=== PATIENT | male | born 1980 | race Caucasian/White ===

== ENCOUNTER 2021-10-08 10:20 | Outpatient (CLI) | payer BC, SELFPAY ==
[2021-10-08 18:25] LABS: Hematocrit 51.3 % (42.0-52.0); Mean Corpuscular HGB Conc 33.1 g/dl (32-36); Mean Corpuscular Hemoglobin 28.8 pg (26-34); Mean Corpuscular Volume 86.9 fl (80-100); Mean Platelet Volume 11.2 fl (7.4-10.4); Platelet Count Result 215 k/mm3 (150-375); Red Cell Distribution Width 14.3 % (11.5-14.5); White Blood Count 7.8 K/mm3 (4.5-10.0)
[2021-10-08 18:35] LABS: Alanine Aminotransferase 30 U/L (6-50); Albumin Level 4.6 g/dL (3.5-5.1); Alkaline Phosphatase 59 U/L (38-126); Anion Gap 7 mmol/L (8-16); Aspartate Amino Transferase 23 U/L (17-59); Bilirubin,Total 0.5 mg/dL (0.2-1.3); Blood Urea Nitrogen 11 mg/dL (9-20); Calcium 9.5 mg/dL (8.4-10.2); Carbon Dioxide 27 mmol/L (22-30); Chloride 102 mmol/L (98-107); Cholesterol 193 mg/dL (0-200); Estimated Glomerular Filt Rate > 60; Glucose 104 mg/dL (65-110); HDL Direct 38 mg/dL; Potassium 4.8 mmol/L (3.4-5.0); Sodium 136 mmol/L (137-145); Triglycerides 220 mg/dL (<150)
[2021-10-08 18:45] LABS: LDL Cholesterol Direct 113 mg/dL
[2021-10-08 18:48] LABS: Vitamin D 25 Hydroxy 60.7 ng/mL
== END 2021-10-08 10:21 | disposition home or self-care (01) ==
PROVIDERS: PCP Family Medicine; Visit Provider Family Medicine
DX: Z00.00 Encounter for general adult medical examination without abnormal findings (principal); E55.9 Vitamin D deficiency, unspecified; R45.4 Irritability and anger; R03.0 Elevated blood-pressure reading, without diagnosis of hypertension; F41.9 Anxiety disorder, unspecified; F32.A Depression, unspecified
CPT/HCPCS: 36415; 80053; 80061; 82306; 84443; 85027

== ENCOUNTER 2022-01-25 07:42 | Outpatient (CLI) | payer BC, SELFPAY ==
[2022-01-30 20:41] LABS: PSA, Free 0.15 ng/mL; PSA, Total 0.4 ng/mL (<=4.0)
[2022-02-01 16:36] LABS: Testosterone Total 572 ng/dL (250-1100)
== END 2022-01-25 07:43 | disposition home or self-care (01) ==
LOC: ANHBWCLAB 07:44
PROVIDERS: PCP Family Medicine; Visit Provider Family Medicine
DX: Z12.5 Encounter for screening for malignant neoplasm of prostate (principal); R79.89 Other specified abnormal findings of blood chemistry
CPT/HCPCS: 36415; 84153; 84154; 84402; 84403

== ENCOUNTER 2023-01-23 07:05 | Outpatient (CLI) | payer BC, SELFPAY ==
--- NOTE | 2023-01-23 | ECG_ITS ---
Measurements Intervals [place] Rate: 77 P: 48 NC: 161 QRS: -22 QRSD: 109 T: 29 QT: 376 QTc: 426 Interpretive Statements SINUS RHYTHM BORDERLINE LEFT AXIS DEVIATION [QRS AXIS < -20] NO PREVIOUS ECG AVAILABLE FOR COMPARISON Electronically Signed On 01-23-2023 12:45:20 CDT by Roma Mello M.D.
--- NOTE | ~2023-01-23 | XR_ITS ---
XR chest 2V DATE: 01/23/2023 08:07 INDICATION: Preoperative evaluation TECHNIQUE: 2 views COMPARISON: 05/20/2018 2 view chest FINDINGS: Normal heart size. No hilar or mediastinal enlargement. No pulmonary infiltrate or consolid ation, pleural effusion or pulmonary vascular congestion or pneumothorax is detected. IMPRESSION: No active cardiopulmonary disease Reviewed, dictated and finalized at location L.
[2023-01-23 07:36] LABS: Appearance Urine Clear (Clear); Bilirubin Urine Negative (Negative); Blood Urine Negative (Negative); Color Urine Yellow (Yellow); Glucose Urine UA Negative (Negative); Ketones Urine Negative (Negative); Leukocyte Esterase Ur Negative LEU/UL (Negative); Nitrate Urine Negative (Negative); Protein Urine Negative (Negative); Specific Grav Ur 1.015 (1.001-1.035); Urobilinogen Urine 0.2 mg/dL (<2.0); pH Urine 6.5 (5.0-9.0)
[2023-01-23 07:37] LABS: Add Urine Microscopic? NO; Basophils Absolute Auto 0.1 K/mm3 (0.0-0.1); Basophils Percent Auto 0.9 % (0.2-1.2); Eosinophils Absolute Auto 0.3 K/mm3 (0-0.3); Eosinophils Percent Auto 4.1 % (0-4.4); Hematocrit 49.1 % (42.0-52.0); Hemoglobin 16.2 g/dL (14.0-18.0); Immature Granulocyte Absolute 0.04 K/mm3 (0.00-0.031); Immature Granulocyte Percent A 0.6 % (0-0.5); Lymphocytes Percent Auto 28.6 % (18.3-44.2); Mean Corpuscular Hemoglobin 29.2 pg (26-34); Mean Corpuscular Volume 88.5 fl (80-100); Mean Platelet Volume 10.6 fl (7.4-10.4); Monocytes Absolute Auto 0.6 K/mm3 (0.1-0.6); Monocytes Percent Auto 8.4 % (2.6-8.5); Neutrophils Percent Auto 57.4 % (45.5-73.1); Platelet Count Result 191 k/mm3 (150-375); Red Blood Count 5.55 M/mm3 (4.6-6.20); Red Cell Distribution Width 14.3 % (11.5-14.5)
[2023-01-23 07:59] LABS: Alanine Aminotransferase 31 U/L (6-50); Albumin Level 4.3 g/dL (3.5-5.1); Alkaline Phosphatase 56 U/L (38-126); Anion Gap 8 mmol/L (8-16); Aspartate Amino Transferase 28 U/L (17-59); Bilirubin,Total 0.5 mg/dL (0.2-1.3); Blood Urea Nitrogen 10 mg/dL (9-20); Calcium 8.7 mg/dL (8.4-10.2); Carbon Dioxide 25 mmol/L (22-30); Chloride 105 mmol/L (98-107); Estimated Glomerular Filt Rate > 60; Glucose 117 mg/dL (65-110); Potassium 3.9 mmol/L (3.4-5.0); Sodium 138 mmol/L (137-145)
[2023-01-23 08:21] LABS: Erythrocyte Sedimentation Rate 1 mm/hr (0-20)
[2023-01-23 08:24] LABS: INR 0.9; Partial Thromboplastin Time 27.1 SECONDS (22.3-36.8)
[2023-01-23 08:34] LABS: HIV 1/2 Ab P24 Ag Result Negative (Negative)
[2023-01-23 09:28] LABS: Vitamin D 25 Hydroxy 44.8 ng/mL
[2023-01-23 09:37] LABS: Hepatitis B Surface Antigen Negative (Negative)
[2023-01-23 09:43] LABS: HAV RESULT Negative (Negative); Hepatitis B Core IgM Result Negative (Negative)
[2023-01-23 09:55] LABS: Hepatitis C Virus Antibody Negative (Negative)
== END 2023-01-23 07:06 | disposition home or self-care (01) ==
PROVIDERS: PCP Family Medicine
DX: Z01.818 Encounter for other preprocedural examination (principal)
CPT/HCPCS: 36415; 71046; 80053; 80074; 81003; 82306; 85025; 85610; 85652; 85730; 86703; 93005; G0432

== ENCOUNTER 2023-03-27 07:10 | Outpatient (CLI) | payer BC, SELFPAY ==
[2023-03-27 20:58] LABS: Potassium 3.8 mmol/L (3.4-5.0)
[2023-03-27 21:03] LABS: Anion Gap 8 mmol/L (8-16); Blood Urea Nitrogen 13 mg/dL (9-20); Calcium 9.2 mg/dL (8.4-10.2); Carbon Dioxide 27 mmol/L (22-30); Chloride 103 mmol/L (98-107); Estimated Glomerular Filt Rate > 60; Glucose 110 mg/dL (65-110); Sodium 138 mmol/L (137-145)
[2023-03-27 21:38] LABS: Hemoglobin A1C 5.9 % (<5.7)
== END 2023-03-27 07:11 | disposition home or self-care (01) ==
LOC: ANHBWCLAB 07:11
PROVIDERS: PCP Nurse Practitioner Adult Health; Visit Provider Nurse Practitioner Adult Health
DX: R73.9 Hyperglycemia, unspecified (principal)
CPT/HCPCS: 36415; 80048; 83036

== ENCOUNTER 2023-05-29 07:06 | Outpatient (CLI) | payer SELFPAY ==
--- NOTE | 2023-05-29 | ECG_ITS ---
Measurements Intervals [place] Rate: 82 P: 55 UT: 158 QRS: -26 QRSD: 112 T: 39 QT: 376 QTc: 440 Interpretive Statements SINUS RHYTHM BORDERLINE LEFT AXIS DEVIATION [QRS AXIS < -20] COMPARED TO ECG 01/23/2023 07:53:45 NO SIGNIFICANT CHANGES Electronically Signed On 05-29-2023 11:26:31 SPEECH AND HEARING DIRECTOR by Roma Mello M.D.
[2023-05-29 07:31] LABS: Hematocrit 50.3 % (42.0-52.0); Hemoglobin 16.2 g/dL (14.0-18.0); Mean Corpuscular HGB Conc 32.2 g/dl (32-36); Mean Corpuscular Hemoglobin 28.6 pg (26-34); Mean Corpuscular Volume 88.9 fl (80-100); Mean Platelet Volume 10.6 fl (7.4-10.4); Platelet Count Result 200 k/mm3 (150-375); Red Blood Count 5.66 M/mm3 (4.6-6.20); Red Cell Distribution Width 15.2 % (11.5-14.5); White Blood Count 5.9 K/mm3 (4.5-10.0)
[2023-05-29 07:43] LABS: Alanine Aminotransferase 45 U/L (6-50); Albumin Level 4.7 g/dL (3.5-5.1); Alkaline Phosphatase 59 U/L (38-126); Anion Gap 5 mmol/L (8-16); Aspartate Amino Transferase 35 U/L (17-59); Bilirubin,Total 0.9 mg/dL (0.2-1.3); Blood Urea Nitrogen 12 mg/dL (9-20); Calcium 9.4 mg/dL (8.4-10.2); Carbon Dioxide 29 mmol/L (22-30); Chloride 105 mmol/L (98-107); Estimated Glomerular Filt Rate > 60; Glucose 107 mg/dL (65-110); Potassium 4.2 mmol/L (3.4-5.0); Sodium 139 mmol/L (137-145)
== END 2023-05-29 07:07 | disposition home or self-care (01) ==
LOC: ANHLAB 07:08
PROVIDERS: PCP Nurse Practitioner Adult Health; Visit Provider Orthopaedic Surgery
DX: Z01.818 Encounter for other preprocedural examination (principal); S43.432A Superior glenoid labrum lesion of left shoulder, initial encounter; R93.1 Abnormal findings on diagnostic imaging of heart and coronary circulation; X58.XXXA Exposure to other specified factors, initial encounter
CPT/HCPCS: 36415; 80053; 85027; 93005

== ENCOUNTER 2024-12-03 06:44 | Day surgery (SDC) | payer BC, SELFPAY ==
[2024-11-18 12:04] VITALS: BMI 45.8
--- OUTSIDE RECORDS SUMMARY | 2024-12-03 06:48 | XMS_ITS | Continuity of Care Document ---
Author Organization [facility] Address [address] [place] [address] [address] [place] [address] Phone Care Team Providers Care Teaching Artist Name Role Phone Carmel Galvan PT Unavailable Unavailable Procedures Procedure Date FCE Each 15min Therapeutic Activities Neuromuscular Re-Ed Therapeutic Exercise BILINGUAL RECEPTIONIST Acute Therapeutic Activities Neuromuscular Re-Ed Therapeutic Exercise Therapeutic Activities Neuromuscular Re-Ed Therapeutic Exercise Therapeutic Activities Neuromuscular Re-Ed Therapeutic Exercise Therapeutic Activities Neuromuscular Re-Ed Therapeutic Exercise Therapeutic Activities Neuromuscular Re-Ed Therapeutic Exercise Therapeutic Activities Neuromuscular Re-Ed Therapeutic Exercise Therapeutic Activities Neuromuscular Re-Ed Therapeutic Exercise Therapeutic Activities Neuromuscular Re-Ed Therapeutic Exercise Therapeutic Activities Neuromuscular Re-Ed Therapeutic Exercise Therapeutic Activities Neuromuscular Re-Ed Therapeutic Exercise PT Evaluation Moderate Complexity Therapeutic Activities Therapeutic Exercise Work Conditioning Initial 2 hrs 024 Work Conditioning add 1 hr Work Conditioning Initial 2 hrs 024 Work Conditioning add 1 hr Work Conditioning Initial 2 hrs 024 Work Conditioning add 1 hr Work Conditioning Initial 2 hrs 024 Work Conditioning add 1 hr BILINGUAL RECEPTIONIST Acute Work Conditioning Initial 2 hrs 024 Work Conditioning add 1 hr Work Conditioning Initial 2 hrs 024 Work Conditioning add 1 hr Work Conditioning Initial 2 hrs 024 Work Conditioning add 1 hr Work Conditioning Initial 2 hrs 024 Work Conditioning add 1 hr Work Conditioning Initial 2 hrs 024 Work Conditioning add 1 hr Work Conditioning Initial 2 hrs 024 Work Conditioning add 1 hr Work Cond Initial Report Work Conditioning Initial 2 hrs 024 Work Conditioning add 1 hr Progress Note Therapeutic Activities Neuromuscular Re-Ed Therapeutic Exercise Manual Therapy Therapeutic Activities Neuromuscular Re-Ed Therapeutic Exercise Manual Therapy Therapeutic Activities Neuromuscular Re-Ed Manual Therapy Therapeutic Activities Neuromuscular Re-Ed Therapeutic Exercise Therapeutic Activities Neuromuscular Re-Ed Therapeutic Exercise Therapeutic Activities Neuromuscular Re-Ed Therapeutic Exercise Therapeutic Activities Neuromuscular Re-Ed Therapeutic Exercise Manual Therapy Therapeutic Activities Neuromuscular Re-Ed Therapeutic Exercise Therapeutic Activities Neuromuscular Re-Ed Therapeutic Exercise Manual Therapy Therapeutic Activities Neuromuscular Re-Ed Manual Therapy Therapeutic Exercise Therapeutic Activities Neuromuscular Re-Ed Manual Therapy Therapeutic Exercise Therapeutic Activities Neuromuscular Re-Ed Therapeutic Exercise Therapeutic Activities Neuromuscular Re-Ed Therapeutic Exercise Therapeutic Activities Neuromuscular Re-Ed Therapeutic Exercise PT Evaluation Moderate Complexity Therapeutic Activities Neuromuscular Re-Ed Therapeutic Exercise Advance Directives Directive Yes / No Effective Date File Name No Information Encounters Encounter Description Practice Location Reason(s) For Visit Diagnoses Date Provider Providers Copied on Encounter [facility], [id number], [place] tel:[phone] [facility] No Information 4 Cole Burt. . [facility] [place] [address], [id number], [place] tel:[phone] [place] No Information 4 Cherie Beaver. [address] [place], [address], [place]. tel:[phone] Referring Provider: Adarsh Clemons, [address], [place], [address]. tel:[phone] [facility], [place], [place], [id number], [place] tel:[phone] [facility] No Information 4 Duncan Davy. . Referring Provider: Nelson Orta, [address], [place], [address]. tel:[phone] [facility], [address], [place], [place], [id number], [place] tel:[phone] [place] No Information Apr-0 5- 4 Duncan Davy. . Referring Provider: Nelson Orta, [address], [place], [address]. tel:[phone] [facility], [address], [place], [place], [id number], [place] tel:[phone] [place] No Information Apr-0 3- 4 Duncan Davy. . Referring Provider: Nelson Orta, [address], [place], [address]. tel:[phone] [facility] [address], [place], [place], [id number], [place] tel:[phone] [place] No Information Apr-0 1- 4 Duncan Davy. . Referring Provider: Mustapha Renee [address], [place], [address]. tel:[phone] [facility], [address], [place], [place], [id number], [place] tel:[phone] [place] No Information Mar-2 4 Duncan Davy. . Referring Provider: Mustapha Renee [address], [place], [address]. tel:[phone] [facility], [place], [place], [id number], [place] tel:[phone] [place] No Information Mar-2 - 4 Duncna Davy. . Referring Provider: Mustapha Rene[address], [place], [address]. tel:[phone] [facility], [place], [place], [id number], [place] tel:[phone] [place] No Information Mar-2 5-202 4 Duncan Davy. . Referring Provider: Nelson Orta, [address], [place], [address]. tel:[phone] [facility] [address], [place], [id number], [place] tel:[phone] [place] No Information Mar-2 2-202 4 Duncan Davy. . Referring Provider: Nelson Orta, [address], [place], [address]. tel:[phone] [facility], [place], [place], [address], [place] tel:[phone] [place] No Information Mar-2 0-202 4 Duncan Davy. . Referring Provider: Mustapha Renee [address], [place], [address]. tel:[phone] [facility], [place], [id number], [place] tel:[phone] [place] No Information Mar-1 8-202 4 Duncan Davy. . Referring Provider: Mustapha Renee [address], [place], [address]. tel:[phone] [facility], [place], [place], [id number], [place] tel:[phone] [place] No Information Mar-1 5-202 4 Duncan Davy. . Referring Provider: Mustapha Renee [address], [place], [address]. tel:[phone] [facility], [place], [id number], [place] tel:[phone] [place] No Information Mar-1 4-202 4 Duncan Davy. . Referring Provider: Nelson You, [address] [place] [address] Rd [address], [place], [address]. tel:[phone] [facility], [address], [place], [place], [id number], [place] tel:[phone] [place] No Information 4 Duncan Davy. . Referring Provider: Adarsh Clemons, [address] [address] [address], [place], [address]. tel:[phone] [facility], [address], [place], [place], [id number], [place] tel:[phone] [place] No Information 4 Duncan Davy. . Referring Provider: Adarsh Clemons, [address] [address] [address], [place], [address]. tel:[phone] [facility], [address], [place], [place], [id number], [place] tel:[phone] [place] No Information 4 Duncan Davy. . Referring Provider: Adarsh Clemons, [address] [address] [address], [place], [address]. tel:[phone] [facility], [address], [place], [place], [id number], [place] tel:[phone] [place] No Information 4 Duncan Davy. . Referring Provider: Adarsh Clemons, [address] [address], [place], [address]. tel:[phone] [facility], [place], [place], [id number], [place] tel:[phone] [place] No Information 4 Duncan Davy. . Referring Provider: Adarsh Clemons, [address], [place], [address]. tel:[phone] [facility], [address], [place], [address], [place] tel:[phone] [place] No Information 0 4 Duncan Elizondoyn. . Referring Provider: Adarsh Clemons, [address], [place], [address]. tel:[phone] [facility], [address], [place], [id number], [place] tel:[phone] [place] No Information b0 4 Duncan Davy. . Referring Provider: Adarsh Clemons, [address], [place], [address]. tel:[phone] [facility], [address], [place], [id number], [place] tel:[phone] [place] No Information 0 4 Duncan Davy. . Referring Provider: Adarsh Clemons, [address], [place], [address]. tel:[phone] [facility], [place], [id number], [place] tel:[phone] [place] No Information 4 Duncan Elizondoyn. . Referring Provider: Adarsh Clemons, [address], [place], [address]. tel:[phone] [facility], [place], [place], [id number], [place] tel:[phone] [place] No Information 4 Duncan Elizondoyn. . Referring Provider: Adarsh Clemons, [address], [place], [address]. tel:[phone] [facility], [place], [place], [id number], [place] tel:[phone] [place] No Information 4 Cole Burt. . Referring Provider: Adarsh Clemons, [address], [place], [address]. tel:[phone] [facility], [address], [place], [id number], [place] tel:[phone] [place] No Information 4 Duncan Bhatti. . Referring Provider: Adarsh Clemons, [address], [place], [address]. tel:[phone] [facility], [address], [place], [place], [address], [place] tel:[phone] [place] No Information 4 Duncan Bhatti. . Referring Provider: Adarsh Clemons, [address], [place], [address]. tel:[phone] [facility], [address], [place], [address], [place] tel:[phone] [place] No Information 4 Lurtz Pam. . Referring Provider: Adarsh Clemons, [address], [place], [address]. tel:[phone] [facility], [address], [place], [id number], [place] tel:[phone] [place] No Information 4 Lurtz Pam. . Referring Provider: Adarsh Clemons, [address], [place], [address]. tel:[phone] [facility], [address], [place], [id number], [place] tel:[phone] [place] No Information 4 Lurtz Pam. . Referring Provider: Adarsh Clemons, [address], [place], [address]. tel:[phone] [facility], [address], [place], [place], [address], [place] tel:[phone] [place] No Information 8 4 Lurtz Pam. . Referring Provider: Adarsh Clemons, [address], [place], [address]. tel:[phone] [facility], [address], [place], [place], [id number], [place] tel:[phone] [place] No Information 5 4 Duncan Davy. . Referring Provider: Adarsh Clemons, [address] [place] [address], [place], [address]. tel:[phone] [facility], [address], [place], [id number], [place] tel:[phone] [place] No Information - 4 Lurtz Pam. . Referring Provider: Adarsh Clemons, [address], [place], [address]. tel:[phone] [facility], [address], [place], [id number], [place] tel:[phone] [place] No Information 2 4 Duncan Davy. . Referring Provider: Adarsh Clemons, [address], [place], [address]. tel:[phone] [facility], [place], [id number], [place] tel:[phone] [place] No Information 3 Duncan Davy. . Referring Provider: Adarsh Clemons, [address], [place], [address]. tel:[phone] [facility], [address], [place], [id number], [place] tel:[phone] [place] No Information 3 Lurtz Pam. . Referring Provider: Adarsh Clemons, [address], [place], [address]. tel:[phone], [id number], tel:[phone] [place] No Information Dec-2 6- 3 Duncan Davy. . Referring Provider: Adarsh Clemons, [address] [place] [address], [facility] [place], [address]. tel:[phone], [id number], [place] tel:[phone] [place] No Information Dec-2 2- 3 Duncan Davy. . Referring Provider: Adarsh Clemons, [address] [place] [address], [facility] [place], [address]. tel:[phone], [id number], tel:[phone] [place] No Information Dec-2 1- 3 Duncan Davy. . Referring Provider: Adarsh Clemons, [address] [place] [address], [facility] [place], [address]. tel:[phone], [id number], tel:[phone] [place] No Information Dec-2 0-202 3 Duncan Davy. . Referring Provider: Adarsh Clemons, [address] [place] [address], [facility], [address]. tel:[phone] Family History Family Member Type Diagnosis Age At Onset No Information Payers Payer name Insurance type Covered constitution party ID Rain ortega(s) Deb [id number] [employer] EPO SP WC [address] [place] [id number] Social History Type Description Quantity Date Captured Comments Sex Male Smoking Status No Information Chief Complaint And Reason For Visit No Information Reason For Referral Reason For Referral No Information History Of Present Illness Encounter Date Complaint History Of Prese nt Illness No Information Functional Status Date Functional Assessmen t No Information Instructions Date Instruction Additional Infor mation Prescribed activity/exercise edu cation Related to Overweight Dietary needs education Related to Overweight Assessments Type Assessment Date No Information Patient Care Teams Name Effective Dates (start - stop) Status Members No Information
[2024-12-03 07:44] VITALS: BP 148/89; PULSE 86; RESP 20; TEMP 36.2; O2SAT 98; BMI 47.2
[2024-12-03] MEDS: LACTATED RINGERS 1,000 ML 150 ML IV CONT (07:54)
--- NOTE | 2024-12-03 08:26 | WPDANESEPPF ---
Anes - Initial Pre Proc Eval Procedure: Operation Date: 12/03/24 09:00 Proposed Procedures p Screening Colonoscopy - Regis Miranda MD Date/Time: 12/03/24 08:26 Surgeon: Regis Miranda MD Pre Op Diagnosis: Encounter for screening for malignant neoplasm of Patient Data Age: 44 Gender: M Height: 1.75 m Weight: 145.1 kg Last Vital Signs Temp 97.1 F L 12/03/24 07:44 Pulse 86 12/03/24 07:44 Resp 20 12/03/24 07:44 BP 148/89 H 12/03/24 07:44 Pulse Ox 98 12/03/24 07:44 O2 Del Method Room Air 12/03/24 07:44 Allergies Allergy/AdvReac Type Severity Reaction Status Date / Time No Known Allergies Allergy Verified 12/03/24 07:43 Home Medications ?Medication ?Instructions ?Recorded ?Confirmed ?Type escitalopram oxalate 10 mg tablet See Rx Instructions .Route 07/19/24 12/03/24 Rx .COMPLEX #90 tabs Patient hx anesthesia problems: none Family hx anesthesia problems: none Results Review: All pre-operative results and documents have been reviewed as part of the pre-operative evaluation. 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 ) poor dentition Neurological: alert and oriented Last oral intake: >/= 8 hours ASA classification: III Emergent: no Anesthetic plan: proceed Anesthesia type and monitoring: general GIVS and standard monitoring Results Review: All pre-operative results and documents have been reviewed as part of the pre-operative evaluation. PRINCE on CPAP. Informed Consent: The patient's anesthetic plan and its attendant risks and benefits were discussed with the patient/family/POA. Questions were solicited and answers provided to the satisfaction of the patient/family/POA.
--- NOTE | 2024-12-03 08:35 | P.HP_ITS ---
History of Present Illness History of Present Illness Consent: Risks, benefits, and alternatives have been discussed and questions answered. Patient agrees to proceed with procedure. Chief complaint: Encounter for screening for malignant neoplasm of Narrative: Evans Forrest Jr. 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 Gender identity (if verbalized by the patient): Male Spiritual care concerns: No Agree to blood products: Yes Meds Home Medications and Allergies Home Medications ?Medication ?Instructions ?Recorded ?Confirmed ?Type escitalopram oxalate 10 mg tablet See Rx Instructions .Route 07/19/24 12/03/24 Rx .COMPLEX #90 tabs Allergies Allergy/AdvReac Type Severity Reaction Status Date / Time No Known Allergies Allergy Verified 12/03/24 07:43 Vital Signs Vital Signs - 24 hr 12/03/24 07:44 Temperature 97.1 F L Pulse Rate 86 Respiratory Rate 20 Blood Pressure 148/89 H Pulse Oximetry 98 Oxygen Delivery Room Air Exam Const: General: comfortable and no acute distress HENMT: Face/Nose/Sinus: Normal nares present Eyes: General: appearance normal, both eyes and all related structures Neck: Neck: no JVD Resp: Auscultation: clear to auscultation bilaterally Cardio: Rate: regular rate Rhythm: regular rhythm GI: Inspection: non-distended GI Palp: Yes Soft to palpation Skin: General skin exam: normal color Neuro: General: gait normal Speech: normal speech Extrem: General: normal to inspection Psych: Mental Status: mental status grossly normal Assessment and Plan Assessment and plan (1) Colon cancer screening: Code(s): Z12.11 - Encounter for screening for malignant neoplasm of colon Status: Acute Assessment and Plan: colonoscopy
[2024-12-03 08:50] VITALS: BP 145/103; PULSE 95; RESP 21; O2SAT 99
[2024-12-03 09:00] VITALS: BP 155/100; PULSE 86; RESP 24; O2SAT 99
[2024-12-03 09:10] VITALS: BP 144/99; PULSE 81; RESP 18; O2SAT 99
--- NOTE | 2024-12-03 09:18 | SUR.PHASEII ---
Patient's last blood pressure is 144/99. patient doesn't take any blood pressure medications and is asymptomatic. notified and patient educated to check blood pressure regularly and to follow up with primary doctor.
== END 2024-12-03 09:20 | disposition home or self-care (01) ==
PROVIDERS: PCP Family Medicine; Referring Provider Family Medicine; Visit Provider Internal Medicine Gastroenterology
PROC: 0DJD8ZZ Inspection of Lower Intestinal Tract, Via Natural or Artificial Opening Endoscopic (ICD-10-PCS; CPT 45378; principal; 2024-12-03 09:00)
DX: Z12.11 Encounter for screening for malignant neoplasm of colon (principal); G47.33 Obstructive sleep apnea (adult) (pediatric); E66.01 Morbid (severe) obesity due to excess calories; Z68.42 Body mass index [BMI] 45.0-49.9, adult; Z99.89 Dependence on other enabling machines and devices; Z87.891 Personal history of nicotine dependence; Z82.49 Family history of ischemic heart disease and other diseases of the circulatory system
CPT/HCPCS: 45378; J2704; J7120